=== PATIENT | male | born 1960 | race Caucasian/White ===

== ENCOUNTER 2023-12-13 08:53 | Emergency (ER) | payer SELFPAY ==
[2023-12-13 08:57] VITALS: BP 153/90
--- NOTE | 2023-12-13 09:26 | ED.GENMED ---
History of Present Illness
General
Chief Complaint: Urinary Symptoms
Time Seen by Provider: 12/13/23 09:04
Travel History
Have you had any contact with someone who has COVID-19?: No
Do you have any symptoms of coronavirus? Fever > 100 degrees, chills, cough, shortness of breath, sore throat, loss of taste or smell, muscle aches, or headache?: No
History of Present Illness
History of Present Illness:
63-year-old male with no significant past medical history presents to the emergency department for evaluation of inability to empty his bladder for the past 4 days. Does note some nocturia and urinary dribbling ongoing longer than that. Feels
intense suprapubic pressure and constipation. Also notes dysuria when he is able to empty his bladder. No fevers or chills
Past History
Past History
ED Past Medical History: None
ED Past Surgical History: Orthopedic (Lumbar discectomy 2004)
Social History
Tobacco: Non-smoker
Alcohol: Occasional
Personal:
Living: with family
Employment: Employed
Family History
Family History: Other (Noncontributory)
Review of Systems
Review of Systems
Allergies reviewed?: Yes
All Other Systems: ROS reviewed and negative except as documented in HPI and ROS
Phy Exam
Physical Exam
Physical Exam:
GEN: Well appearing, NAD, WDWN
HEENT: Oral mucosa moist, no scleral icterus
Cardiac: Regular rate
Lung: No respiratory distress, no tachypnea
Abdomen: Tenderness to palpation in suprapubic space, moderate distention noted
MSK: No gross deformity or injuries
Skin: Good color, no pallor or jaundice, no rashes
Neuro: AO x3, moves all extremities freely
Psych: Calm, cooperative
Course
Orders/Labs/Results
Orders:
Orders
12/13/23 09:19
Chaudhry Placement- Treatment ONCE
Reason for insertion: Acute Retention
12/13/23 09:42
Urinalysis Reflex To Culture Urgent
Date Specimen was Collected: 12/13/23
Time Specimen was Collected: 09:39
Urine Microscopic Reflex Cult Urgent
Abnormal Lab Results
12/13/23
09:42
Urine Ketones 1+ A
(Negative)
Ur Occult Blood Reflex 2+ A
(Negative)
Urine RBC 7-10 A /HPF
(0-2)
Vital Signs
Initial and Last Documented VS:
Initial Vital Signs
Temp Pulse BP Pulse Ox
98.5 F 72 153/90 98
12/13/23 08:57 12/13/23 08:57 12/13/23 08:57 12/13/23 08:57
Last Documented Vital Signs
Temp Pulse Resp BP Pulse Ox
98.5 F 76 20 127/65 100
12/13/23 08:57 12/13/23 10:17 12/13/23 10:17 12/13/23 10:17 12/13/23 10:17
MDM/Problems Addressed
MDM/Problems Addressed:
Clinical milliliters of urine drained via Chaudhry catheter. Will start him on empiric antibiotics, Flomax provided due to likelihood for BPH contributing to symptoms. Recommend outpatient urology follow-up
*Critical Care Note
Total Time (30-74mins, 75-104mins- exclusive of procedures): Not Applicable
ED Attending Note
-
Portions of this chart may have been created with voice recognition software.� Occasional wrong word or��sound alike� substitutions may have occurred due to the inherent limitations of voice recognition software.
Discharge Plan
Departure
Patient Disposition: Home (Routine Discharge)
Date of Disposition: 12/13/23
Time of Disposition: 09:57
Patient with high blood pressure during this ER visit?: No
Discharge Problem:
Acute urinary retention
Instructions: How to Care for Your Chaudhry Catheter, Male, Urinary retention
Prescriptions:
New
tamsulosin [Flomax] 0.4 mg capsule
0.4 mg PO HS Qty: 30 0RF
cephalexin 500 mg capsule
500 mg PO Q8H 7 Days Qty: 21 0RF
No Action
No Meds
Referrals:
Mamadou Steven MD [Active] -
Grisel Pendleton DO [Family Provider] -
Activity Restrictions/Additional Instructions:
Follow up with urology as soon as possible for voiding trial
Return if your catheter does not drain urine
Interventions
Interventions:
*Risk Screen - Suicide Last Done: 12/13/23 09:20
*General Assessment Last Done: 12/13/23 09:20
*Neglect/Abuse Screening Last Done: 12/13/23 09:20
*ED COVID-19 Vaccine History Last Done: 12/13/23 09:01
*Nursing Disposition Last Done: 12/13/23 10:17
ED-Male Genitourinary Assessment Last Done: 12/13/23 09:20
Discharge Date and Time
Discharge Date/Time: 12/13/23 10:26
Print Language: SWEDISH
[2023-12-13 10:16] LABS: Urine Albumin Negative (Neg - Trace); Urine Bilirubin Negative (Negative); Urine Character Clear (Clear); Urine Color Straw; Urine Glucose Negative (Negative); Urine Ketone 1+ (Negative); Urine Leukocyte Negative (Negative); Urine Nitrite Negative (Negative); Urine Occult Blood 2+ (Negative); Urine Specific Gravity 1.015 (<1.030); Urine Urobilinogen Negative (Neg - 1+)
[2023-12-13 10:17] VITALS: BP 127/65
[2023-12-13 10:40] LABS: Urine Mucus Few
[2023-12-13 10:42] LABS: Urine Urothelial Cell 0-2 /LPF (FEW); Urine White Cell 0-2 /HPF (0-5)
== END 2023-12-13 10:26 | disposition home or self-care (01) ==
LOC: EMR 08:53
PROVIDERS: Physician Assistant; EMERGENCY PHYSICIAN Emergency Medicine; FAMILY PHYSICIAN Family Medicine
DX: R33.9 Retention of urine, unspecified (principal); R35.1 Nocturia; R30.0 Dysuria
CPT/HCPCS: 99283; 51702; 81003; 81015